=== PATIENT | male | born 1950 | race Caucasian/White ===

== ENCOUNTER 2021-09-11 10:03 | Emergency (ER) | payer OTHER ==
[~2021-09-11] VITALS: Ht 175.3 cm; Wt 70.3 kg
[2021-09-11] MEDS ORDERED: PLAVIX75 MG PO (12:35)
[2021-09-11] MEDS ORDERED: LIPITOR80 MG GT (12:55)
--- NOTE | 2021-09-11 18:03 | EKG ---
[facility] [address] [facility] [place] [address] Signed Normal sinus rhythm Septal infarct , age undetermined Abnormal ECG When compared with ECG of 25-JUN-2018 16:36, No significant change was found Confirmed by DOUGLAS DIAZ MD ([id number] on 09/11/2021 6:03:09 PM Electronically Signed By: DOUGLAS DIAZ MD 09/11/21 180 PATIENT NAME: GINGER TORRES Electrocardiogram DATE OF : 46 PHYSICIAN: DOUGLAS DIAZ MD REPORT #: [id number] REPORT IS CONFIDENTIAL AND NOT TO BE RELEASED WITHOUT AUTHORIZATION
== END 2021-09-11 13:55 | disposition home or self-care (01) ==
LOC: ED 10:03
DX: I63.9 Cerebral infarction, unspecified (principal); F17.200 Nicotine dependence, unspecified, uncomplicated
CPT/HCPCS: 36415; 70450; 71045; 80053; 85025; 93005; 93010; 93880; 99285-25

== ENCOUNTER 2023-06-14 10:35 | Emergency (ER) | payer OTHER ==
[~2023-06-14] VITALS: Ht 175.3 cm; Wt 65.7 kg
[~2023-06-14 10:35] MED LIST: LIPITOR80 MG GT; PLAVIX75 MG PO
[2023-06-14] MEDS ORDERED: LOW DOSE ASPIRI81 MG PO (11:19)
[2023-06-14] MEDS ORDERED: COZAAR50 MG PO (11:20)
[2023-06-14 12:25] LABS: BILIRUBIN, URINE POSITIVE (negative); BLOOD/HGB, URINE NEGATIVE (Negative); KETONE, URINE >=80 (Negative); LEUK ESTERASE, URINE NEGATIVE (negative); NITRITE, URINE NEGATIVE (negative); PH, URINE 5.5 (5-7)
[2023-06-14] MEDS ORDERED: HYDROCODON-ACE1 EA10 PO (12:27)
[2023-06-14 12:45] VITALS: BP 145/80
== END 2023-06-14 12:45 | disposition home or self-care (01) ==
LOC: ED 10:35
PROVIDERS: Emergency Medicine
DX: S22.41XA Multiple fractures of ribs, right side, initial encounter for closed fracture (principal); J44.9 Chronic obstructive pulmonary disease, unspecified; F17.200 Nicotine dependence, unspecified, uncomplicated; Z79.899 Other long term (current) drug therapy; Z79.82 Long term (current) use of aspirin; W18.30XA Fall on same level, unspecified, initial encounter
CPT/HCPCS: 71101; 81003; 99283-25